=== PATIENT | male | born 1995 | race Caucasian/White ===

== ENCOUNTER 2017-08-08 19:57 | Emergency (ER) | payer SELFPAY ==
[~2017-08-08] VITALS: Ht 185.4 cm; Wt 73.0 kg
[2017-08-08 20:02] VITALS: TEMP 36.7; Ht 185.4 cm; Wt 73.0 kg
[2017-08-08] MEDS ORDERED: FEXO1TAB58 PO (20:19)
[2017-08-08 20:45] VITALS: O2SAT 96
[2017-08-08 21:00] LABS: BUN/CREATININE RATIO 4.9 (10-20); CALCIUM 8.6 mg/dl (8.5-10.1); CREATININE 1.17 mg/dl (0.60-1.40); POTASSIUM 3.5 mmol/L (3.5-5.1)
--- NOTE | 2017-08-08 23:01 | EMERGENCY ROOM VISIT NOTE ---
History First contact with patient: 20:00 Chief Complaint: ALCOHOL OVERDOSE Stated Complaint: ALCOHOL OVERDOSE Nursing Triage Summary: brought in by EMS. visiting friends from [facility]. Was found sleeping on strangers lawn, police were called. Found stumbling around near [facility] and [facility]. History of Present Illness The patient is a 22 year old male who presents to the Emergency Room via EMS for evaluation of alcohol intoxication. Per EMS, the patient was found sleeping in a stranger's lawn. Police were called and the patient was obviously intoxicated on their arrival. The patient does admit to drinking light beer all day. He denies any drug use. He denies any trauma. The patient has no complaint at this time. He is not nauseous and has not been vomiting. Review of Systems A complete 10 point review of systems was reviewed with the patient with pertinent positives and negatives as per history of present illness. All else were negative. Social History Smoking Status: Never Smoker Current/Historical Medications Scheduled Fexofenadine-Pseudoephedrine (Karishma-D 24 Hour Allergy), 1 TAB PO DAILY Physical Exam Vital Signs Date Time Temp Pulse Resp B/P (MAP) Pulse Ox O2 Delivery O2 Flow Rate FiO2 08/08/17 23:51 96 16 136/78 100 08/08/17 22:41 122 16 134/91 94 Room Air 08/08/17 21:25 107 16 98 Room Air 08/08/17 20:56 112 18 134/76 96 Room Air 08/08/17 20:45 96 Room Air 08/08/17 20:09 44 08/08/17 20:02 36.7 132 18 124/101 96 Room Air Physical Exam VITALS: Vitals are noted on the nurse's note and reviewed by myself. Vital signs stable. GENERAL: This is a 22-year-old male, in no acute distress, smells of EtOH, well- developed well-nourished. SKIN: The skin was without rashes, erythema, edema, or bruising. HEAD: Normocephalic atraumatic. EARS: External auditory canals clear, tympanic membranes pearly rivera without erythema or effusion bilaterally. No hemotympanum. EYES: Pupils equal round and reactive to light and accommodation. Extraocular movements intact. MOUTH: Mucous membranes moist. NECK: Supple without nuchal rigidity. No lymphadenopathy. Cervical spine is nontender. HEART: Regular rate and rhythm without murmurs gallops or rubs. LUNGS: Clear to auscultation bilaterally without wheezes, rales or rhonchi. ABDOMEN: Soft, nontender to palpation. MUSCULOSKELETAL: Full range of motion throughout. Strength 5/5 throughout. NEURO: Patient is alert and oriented to person place and time. He does appear to be visibly intoxicated, however he is cooperative and answers questions appropriately. Medical Decision & Procedures Laboratory Results 08/08/17 20:23 Test 08/08/17 20:23 Anion Gap 7.0 mmol/L (3-11) Est Creatinine Clear Calc Drug Dose 102.3 ml/min Estimated GFR () 102.0 Estimated GFR (Non- 88.0 BUN/Creatinine Ratio 4.9 (10-20) Calcium Level 8.6 mg/dl (8.5-10.1) Ethyl Alcohol mg/dL 278.2 mg/dl (0-3) Medical Decision Differential diagnosis includes alcohol intoxication, drug use, infection, hypoglycemia, head trauma, among others. The patient is a 22-year-old male who presents today for evaluation of probable alcohol intoxication. Labs revealed an alcohol elevated at 278. Kidney function was found to be within normal limits. Labs were otherwise unremarkable. There is no evidence of head trauma or infection on exam. The patient was clearly intoxicated, but was cooperative and answered all questions appropriately throughout the examination. The patient was placed on the hospital monitor. They were monitored for several hours. He was reexamined multiple times and remained with an appropriate affect. There was no vomiting. The patient was advised not to drink anymore alcohol today and to follow-up with [facility] for any further concerns. He was discharged home in a taxi. Medication Reconcilliation Current Medication List: was personally reviewed by me Blood Pressure Screening Patient's blood pressure: Normal blood pressure Impression Primary Impression: Alcohol use with intoxication Departure Information Dispostion Home / Self-Care Condition GOOD Referrals No Doctor, Assigned (PCP) Forms HOME CARE DOCUMENTATION FORM, IMPORTANT VISIT INFORMATION Patient Instructions My [facility] Additional Instructions You were evaluated in emergency department for intoxication. This is a sign of Alcohol Abuse and should not be taken lightly. You had a blood alcohol level that was significantly elevated. Over the next 24 hours keep well hydrated and eat light meals. Don't drink any more alcohol. This is important. Please discuss this visit with your Primary Care Provider, [facility] and/or your loved ones. Unless an exceptional circumstance, the Hospital DOES NOT contact anyone during your visit, nor is your Protected Medical Information released to anyone without your approval/request. This means we do not contact your Parents, the Police, [facility], etc. However, you will likely receive a bill from the Hospital and/or your Insurance company, which will usually be sent to the Primary Policy Muse (often one's Parents) If your incident was on campus, or if the Police were involved, they will often contact the [place] to make them aware of what happened. Often this will result in you being required to take Alcohol Education classes (ie BASICS class) . Please see information given to you at discharge regarding contact for this. If the Police were involved you will likely be cited for public intoxication. Please contact either [facility] Police or the [place] Police for further information. Call 911 or return to Emergency Department if you develop: Passing out, difficulty breathing, many episodes of vomiting, blood in vomit or stool, abdominal pain, fevers, or other severe symptoms. We are always here to help if you feel you need further evaluation or treatment.
[2017-08-08 23:51] VITALS: BP 136/78; PULSE 96; O2SAT 100
== END 2017-08-08 23:53 | disposition home or self-care (01) ==
LOC: EDBD 19:57 → C.EDC 19:59
DX: F10.929 Alcohol use, unspecified with intoxication, unspecified (principal); Y90.8 Blood alcohol level of 240 mg/100 ml or more